=== PATIENT | male | born 1970 | race Two or more races ===

== ENCOUNTER 2018-10-21 15:09 | Inpatient (IN) | payer OTHER ==
[2018-10-21 17:50] VITALS: BMI 27.3
--- NOTE | 2018-10-21 19:40 | HP ---
CIWA Score Nausea/Vomitin Muscle Tremors: 3 Anxiety: 3 Agitation: 2 Paroxysmal Sweats: No Perspiration Orientation: 0-Oriented Tacttile Disturbances: 1-Very Mild Itch/Numbness Auditory Disturbances: 1-Very Mild Visual Disturbances: 1-Very Mild Sensitivity Headache: 1-Very Mild CIWA-Ar Total Score: 14 - Admission Criteria OASAS Guidelines: Admission for Medically Managed Detox: Requires at least one of the followin. CIWA greater than 12 2. Seizures within the past 24 hours 3. Delirium tremens within the past 24 hours 4. Hallucinations within the past 24 hours 5. Acute intervention needed for co occurring medical disorder 6. Acute intervention needed for co occurring psychiatric disorder 7. Severe withdrawal that cannot be handled at a lower level of care (continued vomiting, continued diarrhea, abnormal vital signs) requiring intravenous medication and/or fluids 8. Admission ROS S - HPI Chief Complaint: Withdrawal symptoms Allergies/Adverse Reactions: Allergies Allergy/AdvReac Type Severity Reaction Status Date / Time No Known Allergies Allergy Verified 10/21/18 17:43 History of Present Illness: 48 y.o. man with an extensive history of alcohol, cocaine and marijuana dependence is here seeking detox. He reports he last completed detox 1.5 years ago at [facility]. Longest period of alcohol and illicit drug abstinence has been 6 months. Reports he was attending [facility]'s [facility] but voluntarlily left. He states he was last medicated there on 09/09/18 with 40mg of methadone. Pt. states he last used heroin one week ago and has purchased illicit methadone. Urine toxicology is positive for MTD, JEAN, THC. Pt. was adamant that he does not want to be placed on methadone taper or be treated for opiate dependence. Exam Limitations: No Limitations - Ebola screening Have you traveled outside of the country in the last 21 days: No Have you had contact with anyone from an Ebola affected area: No - Review of Systems Constitutional: Chills, Loss of Appetite, Night Sweats EENT: reports: Tearing Respiratory: reports: No Symptoms reported Cardiac: reports: No Symptoms Reported GI: reports: Abdominal cramping : reports: See HPI, Burning Musculoskeletal: reports: Back Pain Integumentary: reports: No Symptoms Reported Neuro: reports: Headache, Tremors Endocrine: reports: No Symptoms Reported Hematology: reports: No Symptoms Reported Psychiatric: reports: Orientated x3 Other Systems: Reviewed and Negative Patient History - Patient Medical History Hx Anemia: No Hx Asthma: No Hx Chronic Obstructive Pulmonary Disease (COPD): No Hx Cancer: No Hx Cardiac Disorders: No Hx Congestive Heart Failure: No Hx Hypertension: No Hx Hypercholesterolemia: No Hx Pacemaker: No HX Cerebrovascular Accident: No Hx Seizures: No Hx Dementia: No Hx Diabetes: No Hx Gastrointestinal Disorders: No Hx Liver Disease: No Hx Genitourinary Disorders: No Hx Sexually Transmitted Disorders: No Hx Renal Disease (ESRD): No Hx Thyroid Disease: No Hx Human Immunodeficiency Virus (HIV): No Hx Hepatitis C: No Hx Depression: No Hx Suicide Attempt: No Hx Bipolar Disorder: Yes Hx Schizophrenia: Yes - Patient Surgical History Past Surgical History: No - PPD History Previous Implant?: Yes Documented Results: Negative w/o proof PPD to be Administered?: Yes - Reproductive History Patient is a Female of Child Bearing Age (11 -55 yrs old): No - Smoking Cessation Smoking history: Current every day smoker Have you smoked in the past 12 months: Yes Initiated information on smoking cessation: Yes 'Breaking Loose' booklet given: 10/21/18 - Substance & Tx. History Hx Alcohol Use: Yes Hx Substance Use: Yes Substance Use Type: Alcohol, Cocaine, Heroin, Marijuana - Substances abused Alcohol Substance route: Oral Frequency: 3-6 times per week Amount used: 2 40 ounces of beer Age of first use: 15 Date of last use: 10/19/18 Cocaine Substance route: Smoking Frequency: 3-6 times per week Amount used: 100 dollars worth Age of first use: 15 Date of last use: 10/20/18 Heroin Substance route: Inhalation Frequency: Daily Amount used: 4 bags Age of first use: 29 Date of last use: 10/16/18 (Does not want to be treated for heroin dependence) Marijuana/Hashish Substance route: Smoking Frequency: 1-2 times per week Amount used: 50 dollars Age of first use: 15 Date of last use: 10/20/18 Family Disease History - Family Disease History Family Disease History: Heart Disease: Father ( ), Respiratory: Mother ( ETOH dependence ), Other: Father Admission Physical Exam BHS - Vital Signs Vital Signs: Vital Signs - 24 hr 10/21/18 17:43 Temperature 97.1 F L Pulse Rate 83 Respiratory 16 Rate Blood Pressure 128/77 - Physical General Appearance: Yes: Irritable, Sweating, Anxious HEENTM: Yes: Hearing grossly Normal, Normal ENT Inspection, Normocephalic Respiratory: Yes: Chest Non-Tender, Lungs Clear, Normal Breath Sounds, No Respiratory Distress Neck: Yes: No masses,lesions,Nodules, Trachea in good position Breast: Yes: Breast Exam Deferred Cardiology: Yes: Regular Rhythm, Regular Rate Abdominal: Yes: Normal Bowel Sounds, Non Tender, Flat, Soft Genitourinary: Yes: Within Normal Limits Back: Yes: Normal Inspection Musculoskeletal: Yes: full range of Motion, Gait Steady, Pelvis Stable Extremities: Yes: Tremors Neurological: Yes: Alert, Normal Mood/Affect, Normal Response Integumentary: Yes: Normal Color, Dry, Warm Lymphatic: Yes: Within Normal Limits - Diagnostic (1) Uncomplicated opioid dependence Current Visit: Yes Status: Chronic Comment: Against medical advice, pt. refused treatment for opiate dependence despite having used heroin 1 week ago and utox + for methadone. (2) Cocaine dependence Current Visit: Yes Status: Chronic (3) Alcohol dependence with uncomplicated intoxication Current Visit: Yes Status: Chronic (4) Marijuana dependence Current Visit: Yes Status: Chronic (5) Nicotine dependence Current Visit: Yes Status: Chronic Cleared for Admission S - Detox or Rehab [facility] Level of Care: Medically Managed Detox Regimen/Protocol: Librium Breathalyzer - Breathalyzer Breathalyzer: 0 Urine Drug Screen - Test Device Lot number: [id number] Expiration date: 07/24/20 - Control Is test valid?: Yes - Results Drug screen NEGATIVE: No Urine drug screen results: THC-Marijuana, JEAN-Cocaine, MTD-Methadone Inpatient Rehab Admission - Rehab Decision to Admit Inpatient rehab admission?: No
[2018-10-21] MEDS ORDERED: MELATONIN 5 MG TABLETS PO PRN (19:44)
[2018-10-21] MEDS ORDERED: IBUPROFEN 400 MG TABLET (FP) PO PRN (19:44)
[2018-10-21] MEDS ORDERED: NICOTINE POLACRILEX 2 MG GUM BUC PRN (19:44)
[2018-10-21] MEDS ORDERED: MAGNESIUM HYDROX 2400MG/30ML ORAL SUSPENSION 30 ML CUP PO PRN (19:44)
[2018-10-21] MEDS ORDERED: ONDANSETRON *ODT* 4 MG TABLET SL PRN (19:44)
[2018-10-21] MEDS ORDERED: BISMUTH SUBSALICYLATE 524 MG/30 ML UD PO PRN (19:44)
[2018-10-21] MEDS ORDERED: DICYCLOMINE HCL 10 MG CAPSULE PO PRN (19:44)
[2018-10-21] MEDS ORDERED: chlordiazePOXIDE HCL 25 MG CAPSULE PO PRN (19:44)
[2018-10-21] MEDS ORDERED: chlordiazePOXIDE HCL 25 MG CAPSULE PO ONE (19:44)
[2018-10-21] MEDS ORDERED: MAGNESIUM CITRATE 300 ML BOTTLE PO PRN (19:44)
[2018-10-21] MEDS ORDERED: MAG HYDROX/AL HYDROX/SIMETH 30 ML UNIT-DOSE CUP PO PRN (19:44)
[2018-10-21] MEDS ORDERED: ACETAMINOPHEN 325 MG TABLET (FP) PO PRN ×2 (19:44)
[2018-10-21] MEDS ORDERED: METHOCARBAMOL 500 MG TABLET PO PRN (19:44)
[2018-10-21] MEDS ORDERED: MENTHOL/PHENOL 1 EACH UD MM PRN (19:44)
[2018-10-21] MEDS ORDERED: hydrOXYzine PAMOATE 50 MG CAPSULE (FP) PO PRN (19:44)
[2018-10-21] MEDS: THIAMINE HCL 100 MG TABLET (FP) PO SCH (22:27)
[2018-10-21] MEDS: chlordiazePOXIDE HCL 25 MG CAPSULE PO SCH (22:27)
[2018-10-22] MEDS: chlordiazePOXIDE HCL 25 MG CAPSULE PO SCH ×4 (06:21→22:31)
--- NOTE | 2018-10-22 10:34 | EKG ---
Test Reason : Blood Pressure : / mmHG Vent. Rate : 063 BPM Atrial Rate : 063 BPM P-R Int : 172 ms QRS Dur : 084 ms QT Int : 398 ms P-R-T Axes : 071 075 059 degrees QTc Int : 407 ms NORMAL SINUS RHYTHM NORMAL ECG NO PREVIOUS ECGS AVAILABLE Confirmed by EVITA EPPS, BECCA ([id number]) on 10/22/2018 10:34:07 AM Referred By: PATRICIA LOW Confirmed By:BECCA JAMA MD
[2018-10-22] MEDS: PRENATAL VITAMINS W/ FOLIC ACID TABLET (FP) PO SCH (11:05)
[2018-10-22] MEDS: NICOTINE 14 MG/24 HOURS TOPICAL PATCH TD SCH (11:05)
--- NOTE | 2018-10-22 11:21 | PN ---
S CIWA - CIWA Score Nausea/Vomitin Muscle Tremors: 2 Anxiety: 3 Agitation: 2 Paroxysmal Sweats: 1-Minimal Palms Moist Orientation: 0-Oriented Tacttile Disturbances: 1-Very Mild Itch/Numbness Auditory Disturbances: 0-None Visual Disturbances: 0-None Headache: 2-Mild CIWA-Ar Total Score: 13 BHS Progress Note (SOAP) Subjective: alert,irritable,anxious,interrupted sleep,tremor,pain in the body and back Objective: 10/22/18 11:20 Vital Signs Temperature 97.6 F 10/22/18 09:36 Pulse Rate 69 10/22/18 09:36 Respiratory Rate 18 10/22/18 09:36 Blood Pressure 119/70 10/22/18 09:36 O2 Sat by Pulse Oximetry (%) labs pending Assessment: 10/22/18 11:21 withdrawal symptom Plan: continue detox librium regimen
[2018-10-22 11:46] LABS: ALBUMIN 3.2 g/dl (3.4-5.0); BILIRUBIN,TOTAL 0.3 mg/dL (0.2-1); CALCIUM 9.1 mg/dL (8.5-10.1); POTASSIUM 4.3 mmol/L (3.5-5.1); TOT PROT 6.1 g/dl (6.4-8.2)
[2018-10-22 11:47] LABS: HEMATOCRIT 42.2 % (35.4-49); HEMOGLOBIN 14.1 GM/dL (11.7-16.9); MCHC 33.5 g/dl (32.0-35.9); MEAN CELL VOLUME 92.4 fl (80-96); MEAN PLT VOLUME 9.7 fl (7.5-11.1); PLATELET COUNT 204 K/MM3 (134-434); RBC 4.56 M/mm3 (4.00-5.60); RDW 14.5 % (11.9-15.9); WHITE BLOOD COUNT 7.4 K/mm3 (4.0-10.0)
[2018-10-22] MEDS: THIAMINE HCL 100 MG TABLET (FP) PO SCH (22:32)
[2018-10-23] MEDS: chlordiazePOXIDE HCL 25 MG CAPSULE PO SCH ×4 (05:36→22:29)
[2018-10-23] MEDS: PRENATAL VITAMINS W/ FOLIC ACID TABLET (FP) PO SCH (10:25)
[2018-10-23] MEDS: NICOTINE 14 MG/24 HOURS TOPICAL PATCH TD SCH (10:25)
--- NOTE | 2018-10-23 10:45 | PN ---
S CIWA - CIWA Score Nausea/Vomitin-Mild Nausea/No Vomiting Muscle Tremors: 1-None Visible, but [place] Anxiety: 3 Agitation: 3 Paroxysmal Sweats: No Perspiration Orientation: 0-Oriented Tacttile Disturbances: 0-None Auditory Disturbances: 0-None Visual Disturbances: 0-None Headache: 1-Very Mild CIWA-Ar Total Score: 9 S Progress Note (SOAP) Subjective: Patient not having any complaints. Objective: 10/23/18 10:42 BP:135/70 P:80 R:18 T:98.7 Abnormal Lab Results 10/22/18 07:30 Chloride 109 H Anion Gap 5 L Total Protein 6.1 L Albumin 3.2 L Assessment: 10/23/18 10:42 1. Alcohol Dependence with withdrawals 2. Abnormal labs Plan: 1. Continue detox protocol with librium. Encourage more PO fluids. Patient may request for minor symptoms of withdrawal prn medications. 2. Noted Low total protein and albumin consistent with poor nutrition. RPR negative noted TB quantiferon still pending Low anion gap consistent with vomitting and withdrawal symptoms as is the hypochloremia.
[2018-10-23] MEDS: THIAMINE HCL 100 MG TABLET (FP) PO SCH (22:29)
[2018-10-24] MEDS ORDERED: chlordiazePOXIDE HCL 10 MG CAPSULE PO PRN
[2018-10-24] MEDS: chlordiazePOXIDE HCL 10 MG CAPSULE PO SCH ×4 (05:26→22:29)
--- NOTE | 2018-10-24 10:21 | PN ---
S CIWA - CIWA Score Nausea/Vomitin-No Nausea/No Vomiting Muscle Tremors: 2 Anxiety: 3 Agitation: 0-Normal Activity Paroxysmal Sweats: 3 Orientation: 0-Oriented Tacttile Disturbances: 0-None Auditory Disturbances: 0-None Visual Disturbances: 0-None Headache: 2-Mild CIWA-Ar Total Score: 10 S Progress Note (SOAP) Subjective: c/o sweats, headache, and anxiety. Objective: 10/24/18 10:17 Vital Signs 10/24/18 10/24/18 10/24/18 03:30 06:44 09:34 Temperature 96.1 F L 96.4 F L Pulse Rate 66 67 Respiratory 18 17 18 Rate Blood Pressure 133/74 139/79 Lab Results WBC 7.4 K/mm3 (4.0-10.0) 10/22/18 07:30 RBC 4.56 M/mm3 (4.00-5.60) 10/22/18 07:30 Hgb 14.1 GM/dL (11.7-16.9) 10/22/18 07:30 Hct 42.2 % (35.4-49) 10/22/18 07:30 MCV 92.4 fl (80-96) 10/22/18 07:30 MCHC 33.5 g/dl (32.0-35.9) 10/22/18 07:30 RDW 14.5 % (11.9-15.9) 10/22/18 07:30 Plt Count 204 K/MM3 (134-434) 10/22/18 07:30 Sodium 143 mmol/L (136-145) 10/22/18 07:30 Potassium 4.3 mmol/L (3.5-5.1) 10/22/18 07:30 Chloride 109 mmol/L (98-107) H 10/22/18 07:30 Carbon Dioxide 29 mmol/L (21-32) 10/22/18 07:30 Anion Gap 5 MMOL/L (8-16) L 10/22/18 07:30 BUN 11.0 mg/dL (7-18) 10/22/18 07:30 Creatinine 1.0 mg/dL (0.55-1.3) 10/22/18 07:30 Random Glucose 88 mg/dL (74-106) 10/22/18 07:30 Calcium 9.1 mg/dL (8.5-10.1) 10/22/18 07:30 Labs noted. Assessment: 10/24/18 10:20 AOX3, in no acute respiratory distress. Full ROM, ambulating in the unit. Withdrawal symptoms. Plan: continue detox.
[2018-10-24] MEDS: NICOTINE 14 MG/24 HOURS TOPICAL PATCH TD SCH (10:36)
[2018-10-24] MEDS: PRENATAL VITAMINS W/ FOLIC ACID TABLET (FP) PO SCH (10:36)
[2018-10-24] MEDS: THIAMINE HCL 100 MG TABLET (FP) PO SCH (22:29)
[2018-10-25] MEDS: chlordiazePOXIDE HCL 10 MG CAPSULE PO SCH ×2 (05:47→17:54)
[2018-10-25] MEDS: NICOTINE 14 MG/24 HOURS TOPICAL PATCH TD SCH (10:42)
[2018-10-25] MEDS: PRENATAL VITAMINS W/ FOLIC ACID TABLET (FP) PO SCH (10:42)
[2018-10-25] MEDS ORDERED: cloNIDine HCL 0.1 MG TABLET PO PRN (14:09)
--- NOTE | 2018-10-25 14:11 | PN ---
S CIWA - CIWA Score Nausea/Vomitin-No Nausea/No Vomiting Muscle Tremors: 2 Anxiety: 2 Agitation: 1-Slight > Activity Paroxysmal Sweats: 2 Orientation: 0-Oriented Tacttile Disturbances: 0-None Auditory Disturbances: 0-None Visual Disturbances: 0-None Headache: 0-None Present CIWA-Ar Total Score: 7 BHS Progress Note (SOAP) Subjective: Feels ok, medication helping Objective: 10/25/18 14:07 Last Vital Signs Temp Pulse Resp BP Pulse Ox 97.5 F L 92 H 18 144/74 10/25/18 13:37 10/25/18 13:37 10/25/18 13:37 10/25/18 13:37 Elevated b/p 144/74 (most likely due to anxiety/withdrawal; patient is anxious) Laboratory Tests 10/22/18 10/22/18 10/22/18 07:30 07:30 07:30 WBC 7.4 RBC 4.56 Hgb 14.1 Hct 42.2 MCV 92.4 MCH 31.0 MCHC 33.5 RDW 14.5 Plt Count 204 MPV 9.7 Sodium 143 Potassium 4.3 Chloride 109 H Carbon Dioxide 29 Anion Gap 5 L BUN 11.0 Creatinine 1.0 Est GFR (CKD-EPI)AfAm 104.15 Est GFR (CKD-EPI)NonAf 89.86 Random Glucose 88 Calcium 9.1 Total Bilirubin 0.3 AST 31 ALT 30 Alkaline Phosphatase 96 Total Protein 6.1 L Albumin 3.2 L RPR Titer Nonreactive Labs reviewed Assessment: 10/25/18 14:09 Withdrawal sxs Noted with elevated b/p (denies htn) Plan: Continue detox Encouraged PO water intake Patient scheduled for discharge tomorrow Elevated b/p: most likely r/t anxiety and withdrawal; start clonidine prn
[2018-10-25] MEDS: THIAMINE HCL 100 MG TABLET (FP) PO SCH (22:35)
[2018-10-26] MEDS ORDERED: chlordiazePOXIDE HCL 10 MG CAPSULE PO ONE (05:00)
[2018-10-26 07:53] VITALS: TEMP 97.3
--- NOTE | 2018-10-26 10:04 | DS ---
[facility] Detox Discharge Summary Admission Date: 10/21/18 Discharge Date: 10/26/18 - History Present History: Alcohol Dependence, Cannabis Dependence, Cocaine Dependence, Opioid Dependence - Physical Exam Results Vital Signs: Vital Signs Temperature 97.3 F L 10/26/18 07:52 Pulse Rate 62 10/26/18 07:52 Respiratory Rate 18 10/26/18 07:52 Blood Pressure 116/69 10/26/18 07:52 O2 Sat by Pulse Oximetry (%) Pertinent Admission Physical Exam Findings: pt arrived in withdrawals Laboratory Tests 10/22/18 10/22/18 10/22/18 07:30 07:30 07:30 WBC 7.4 RBC 4.56 Hgb 14.1 Hct 42.2 MCV 92.4 MCH 31.0 MCHC 33.5 RDW 14.5 Plt Count 204 MPV 9.7 Sodium 143 Potassium 4.3 Chloride 109 H Carbon Dioxide 29 Anion Gap 5 L BUN 11.0 Creatinine 1.0 Est GFR (CKD-EPI)AfAm 104.15 Est GFR (CKD-EPI)NonAf 89.86 Random Glucose 88 Calcium 9.1 Total Bilirubin 0.3 AST 31 ALT 30 Alkaline Phosphatase 96 Total Protein 6.1 L Albumin 3.2 L RPR Titer Nonreactive today pt is aaox3 aaox3 ambulating no acute distress - Treatment Hospital Course: Detox Protocol Followed, Detoxed Safely, Responded well, Discharged Condition Good, Rehab Referral Accepted Patient has Accepted a Rehab Referral to: referral to [facility] rehab - Medication Discharge Medications: Ambulatory Orders NK [No Known Home Medication] 10/21/18 - Diagnosis (1) Alcohol dependence with uncomplicated intoxication Status: Chronic (2) Cocaine dependence Status: Chronic Qualifiers: Substance use status: uncomplicated Qualified Code(s): F14.20 - Cocaine dependence, uncomplicated (3) Marijuana dependence Status: Chronic (4) Nicotine dependence Status: Chronic Qualifiers: Nicotine product type: cigarettes Substance use status: uncomplicated Qualified Code(s): F17.210 - Nicotine dependence, cigarettes, uncomplicated (5) Uncomplicated opioid dependence Status: Chronic - AMA Did Patient Leave Against Medical Advice: No
[2018-10-26] MEDS: NICOTINE 14 MG/24 HOURS TOPICAL PATCH TD SCH (10:06)
[2018-10-26] MEDS: PRENATAL VITAMINS W/ FOLIC ACID TABLET (FP) PO SCH (10:06)
[2018-10-26 10:55] VITALS: BP 131/76; PULSE 84
== END 2018-10-26 12:22 | disposition other institution (70) | DRG 773 ==
LOC: YASAS 15:09 → Y6N 21:07
PROVIDERS: ADMIT Surgery; ATTEND Surgery
PROC: HZ2ZZZZ Detoxification Services for Substance Abuse Treatment (ICD-10-PCS; principal; 2018-10-21)
DX: F10.230 Alcohol dependence with withdrawal, uncomplicated (principal); F10.220 Alcohol dependence with intoxication, uncomplicated; F11.20 Opioid dependence, uncomplicated; F14.20 Cocaine dependence, uncomplicated; F12.20 Cannabis dependence, uncomplicated; F17.210 Nicotine dependence, cigarettes, uncomplicated; R03.0 Elevated blood-pressure reading, without diagnosis of hypertension; R79.89 Other specified abnormal findings of blood chemistry
CPT/HCPCS: 36415; 80053; 85027; 86480; 86593; 93005; 93010

== ENCOUNTER 2018-10-26 12:28 | Inpatient (IN) | payer OTHER ==
[2018-10-26] MEDS ORDERED: NICOTINE POLACRILEX 4 MG GUM BUC PRN (13:35)
[2018-10-26] MEDS ORDERED: MAG HYDROX/AL HYDROX/SIMETH 30 ML UNIT-DOSE CUP PO PRN (13:35)
[2018-10-26] MEDS ORDERED: guaiFENesin 200 MG/10 ML 10 ML UNIT-DOSE CUPS PO PRN (13:35)
[2018-10-26] MEDS ORDERED: LOPERAMIDE HCL 2 MG CAPSULE PO PRN (13:35)
[2018-10-26] MEDS ORDERED: MAGNESIUM CITRATE 300 ML BOTTLE PO PRN (13:35)
[2018-10-26] MEDS ORDERED: MAGNESIUM HYDROX 2400MG/30ML ORAL SUSPENSION 30 ML CUP PO PRN (13:35)
[2018-10-26] MEDS ORDERED: IBUPROFEN 400 MG TABLET (FP) PO PRN (13:35)
[2018-10-26] MEDS ORDERED: MENTHOL/PHENOL 1 EACH UD MM PRN (13:35)
[2018-10-26] MEDS ORDERED: P-EPHED 60MG/TRIPROLIDI 2.5MG TABLET PO PRN (13:35)
[2018-10-26] MEDS ORDERED: hydrOXYzine PAMOATE 50 MG CAPSULE (FP) PO PRN (13:35)
[2018-10-26] MEDS ORDERED: ACETAMINOPHEN 325 MG TABLET (FP) PO PRN (13:35)
--- NOTE | 2018-10-26 13:35 | HP ---
[facility] EPPS Rehab Assess/Revision - Admission History Admitted to Rehab from: [address] - Vital signs Vital Signs: Vital Signs Period Temp Pulse Resp BP Sys/Pepe Pulse Ox Last 24 Hr 99.2 F 81 18 131/84 - Findings Detox History & Physical reviewed: Yes Concur with findings: Yes Inpatient Rehab Admission - Rehab Decision to Admit Inpatient rehab admission?: Yes - Initial Determination Are CD services needed?: Yes Free of communicable disease: Yes Not in need of hospitalization: Yes - Rehab Admission Criteria Previous failed treatment: Yes Poor recovery environment: Yes Comorbidities: Yes Lacks judgement: Yes Patient is meeting Inpatient Rehab admission criteria:: Yes
[2018-10-26] MEDS ORDERED: THIAMINE HCL 100 MG TABLET (FP) PO SCH (22:00)
[2018-10-26] MEDS ORDERED: MELATONIN 5 MG TABLETS PO PRN (22:00)
[2018-10-27 06:46] VITALS: BP 129/75; PULSE 77; TEMP 97.6
[2018-10-27] MEDS ORDERED: NICOTINE 21 MG/24 HOURS TOPICAL PATCH TD SCH (10:00)
[2018-10-27] MEDS ORDERED: PRENATAL VITAMINS W/ FOLIC ACID TABLET (FP) PO SCH (10:00)
--- NOTE | 2018-10-27 10:22 | DS ---
[facility] Rehab Discharge Summary - [facility] Rehab Discharge Summary Admission Date: 10/26/18 Discharge Date: 10/27/18 - History Present History: Alcohol dependence, Cannabis dependence, Cocaine dependence Pertinent Past History: 48 y.o. man with an extensive history of alcohol, cocaine and marijuana dependence is here seeking detox. He reports he last completed detox [address] [facility]. Longest period of alcohol and illicit drug abstinence has been 6 months. Reports he was attending [facility] but voluntarlily left. He states he was last medicated there on 09/09/18 with 40mg of methadone. Admission Urine toxicology is positive for MTD, JEAN, THC. Pt. was adamant that he does not want to be placed on methadone taper or be treated for opiate dependence. - Discharge Physical Exam Vital Signs: Vital Signs Temperature 97.6 F 10/27/18 06:45 Pulse Rate 77 10/27/18 06:45 Respiratory Rate 18 10/27/18 06:45 Blood Pressure 129/75 10/27/18 06:45 O2 Sat by Pulse Oximetry (%) Pertinent Admission Physical Exam Findings: General Appearance: Irritable, Angry, threatening staff and cursing. HEENTM: Hearing grossly Normocephalic Respiratory: Refusing examination Neck: Refusing examination Cardiology: Refusing examination Lungs: refusing examination Abdominal: Refusing Musculoskeletal: full range of Motion, Gait Steady, based on observation of patient Neurological: No neurological deficits, CN 2-12 intact, based on observation Integumentary: Normal Color Patient refused examination, findings based on observation. Patient agitated and cursing at staff, security notified to monitor and escort patient. - Treatment Discharge Condition: Discharge condition good Hospital Course: Patient was admitted on 10/26 to rehab, demanding to leave today, 10/27 - Medication Discharge Medications: Ambulatory Orders NK [No Known Home Medication] 10/21/18 - Medication-Assisted Treatment (MAT) Medication-Assisted Treatment (MAT): No - Discharge Instructions Diet, activity, other medical instructions: Diet: as tolerated Activity: as tolerated Other medical instructions: patient refusing instructions. - Follow-up Referral Minutes to complete discharge: 10 - AMA Did Patient Leave Against Medical Advice: Yes Additional Comments: patient leaving AMA, agitated, cursing at staff. Security called to monitor staff and escort off the unit.
== END 2018-10-27 10:25 | disposition left against medical advice (07) | DRG 770 ==
LOC: YASAS 12:28 → Y3W 12:29
PROVIDERS: ADMIT Neuromusculoskeletal Medicine & OMM; ATTEND Neuromusculoskeletal Medicine & OMM
PROC: HZ42ZZZ Group Counseling for Substance Abuse Treatment, Cognitive-Behavioral (ICD-10-PCS; principal; 2018-10-26)
DX: F10.20 Alcohol dependence, uncomplicated (principal); F14.20 Cocaine dependence, uncomplicated; F12.20 Cannabis dependence, uncomplicated; F17.210 Nicotine dependence, cigarettes, uncomplicated
CPT/HCPCS: 36415; 87389